=== PATIENT | female | born 1940 | race Caucasian/White ===

== ENCOUNTER → 2017-06-30 | Outpatient (CLI) | payer MEDICARE, OTHER | LOC: M ADAMS 13:23 | DX: S66.002A Unspecified injury of long flexor muscle, fascia and tendon of left thumb at wrist and hand level, initial encounter (principal); X58.XXXA Exposure to other specified factors, initial encounter; Y92.89 Other specified places as the place of occurrence of the external cause | CPT/HCPCS: 73140 ==

== ENCOUNTER → 2017-09-03 | Outpatient (REF) | payer MEDICARE, OTHER ==
[2017-09-03 14:20] LABS: VITAMIN B12 LEVEL 474 PG/ML (247-911)
== END ==
LOC: M LAB REF 13:12
DX: R20.8 Other disturbances of skin sensation (principal); L65.9 Nonscarring hair loss, unspecified
CPT/HCPCS: 82607

== ENCOUNTER → 2018-05-27 | Outpatient (REF) | payer MEDICARE, OTHER ==
[2018-05-27 14:21] LABS: CONTROL LINE HPYORI INT CTR LINE PRESENT; H PYLORI QUALITATIVE IgG NEGATIVE (NEGATIVE)
[2018-05-27 15:39] LABS: AMYLASE 101 U/L (25-115)
[2018-05-27 15:54] LABS: LIPASE 203 U/L (73-393)
== END ==
LOC: M LAB REF 13:25
DX: R10.13 Epigastric pain (principal)
CPT/HCPCS: 82150

== ENCOUNTER → 2018-06-10 | Outpatient (CLI) | payer MEDICARE, OTHER ==
[~2018-06-10] MED LIST: E-Z-GAS II EFFERVESCENT PACKET (SODIUM BICARB./CITRIC ACID/SIMETHICONE) As Ordered; E-Z-HD 98% w/w 340GM SUSP BTL As Ordered; E-Z-PAQUE 96% w/w SUSP 176GM BTL As Ordered
== END ==
LOC: M RAD 10:01
DX: K44.9 Diaphragmatic hernia without obstruction or gangrene (principal); R10.13 Epigastric pain
CPT/HCPCS: 74241

== ENCOUNTER → 2018-11-23 | Outpatient (REF) | payer MEDICARE, OTHER ==
[2018-11-24 08:06] LABS: LDL DIRECT 123 mg/dL (0-99)
== END ==
LOC: M LAB REF 12:27
PROVIDERS: ATTEND Nurse Practitioner Adult Health
DX: E78.00 Pure hypercholesterolemia, unspecified (principal)

== ENCOUNTER → 2020-01-01 | Outpatient (REF) | payer MEDICARE, OTHER ==
[2020-01-01 17:54] LABS: CREATININE FOR GFR 1.04 MG/DL (0.55-1.30); GLOMERULAR FILTRATION RATE 54.7 (>39)
== END ==
LOC: M LABDRWAD 16:46
PROVIDERS: ATTEND Neurological Surgery
DX: D32.0 Benign neoplasm of cerebral meninges (principal)

== ENCOUNTER → 2021-01-03 | Outpatient (CLI) | payer MEDICARE, OTHER | LOC: M WHC 14:55 | PROVIDERS: ATTEND Nurse Practitioner Adult Health | DX: Z12.31 Encounter for screening mammogram for malignant neoplasm of breast (principal); Z78.0 Asymptomatic menopausal state; Z80.3 Family history of malignant neoplasm of breast ==

== ENCOUNTER → 2021-03-14 | Outpatient (CLI) | payer MEDICARE, OTHER ==
[~2021-03-14] MED LIST changes: -E-Z-GAS II EFFERVESCENT PACKET (SODIUM BICARB./CITRIC ACID/SIMETHICONE) As Ordered; -E-Z-HD 98% w/w 340GM SUSP BTL As Ordered; -E-Z-PAQUE 96% w/w SUSP 176GM BTL As Ordered; +PROHANCE 279.3MG/ML 15ML VIAL As Ordered ONE; +PROHANCE 279.3MG/ML 5ML VIAL As Ordered ONE
== END ==
LOC: M RAD 13:04
PROVIDERS: ATTEND Radiology Radiation Oncology
DX: D32.0 Benign neoplasm of cerebral meninges (principal)
CPT/HCPCS: 70553; A9576

== ENCOUNTER → 2021-09-29 | Outpatient (CLI) | payer MEDICARE, OTHER | LOC: M RAD 12:36 | PROVIDERS: ATTEND Radiology Radiation Oncology | DX: D32.0 Benign neoplasm of cerebral meninges (principal) | CPT/HCPCS: 70553; A9576 ==

== ENCOUNTER → 2021-11-26 | Outpatient (REF) | payer MEDICARE, OTHER ==
[2021-11-26 17:33] LABS: APPEARANCE, URINE HAZY (CLEAR); BACTERIA, URINE AUTO 1+ (NEGATIVE); BILIRUBIN, URINE AUTO NEGATIVE (NEGATIVE); BLOOD, URINE BLOOD 2+ (NEGATIVE); COLOR, URINE YELLOW (YELLOW); GLUCOSE, URINE (UA) AUTO NEGATIVE (NEGATIVE); KETONE, URINE AUTO NEGATIVE (NEGATIVE); LEUKOCYTE ESTERASE, URINE AUTO 3+ (NEGATIVE); NITRITE, URINE AUTO NEGATIVE (NEGATIVE); PROTEIN, URINE AUTO NEGATIVE (NEGATIVE); RBC, URINE AUTO 3 /HPF (0-3); SPECIFIC GRAVITY URINE AUTO 1.008 (1.002-1.035); SQUAMOUS EPITHELIAL CELL UR AU 3 /HPF (0-6); UROBILINOGEN, URINE AUTO 0.2 mg/dL (0.0-2.0); WBC, URINE AUTO 143 /HPF (0-3)
== END ==
LOC: M LAB REF 16:43
PROVIDERS: ATTEND Physician Assistant
DX: N39.0 Urinary tract infection, site not specified (principal)

== ENCOUNTER → 2022-04-16 | Outpatient (CLI) | payer MEDICARE, OTHER | LOC: M RAD 12:34 | PROVIDERS: ATTEND Radiology Radiation Oncology | DX: D32.0 Benign neoplasm of cerebral meninges (principal) ==

== ENCOUNTER → 2022-05-27 | Outpatient (CLI) | payer MEDICARE, OTHER | LOC: M WUC 12:54 | PROVIDERS: ATTEND Nurse Practitioner Adult Health | DX: R07.89 Other chest pain (principal) ==

== ENCOUNTER → 2022-12-31 | Outpatient (CLI) | payer MEDICARE, OTHER | LOC: M RAD 15:12 | PROVIDERS: ATTEND Nurse Practitioner Adult Health | DX: D32.0 Benign neoplasm of cerebral meninges (principal) ==

== ENCOUNTER → 2023-03-08 | Outpatient (REF) | payer MEDICARE, OTHER | LOC: M LAB REF 16:30 | PROVIDERS: ATTEND Internal Medicine | DX: N39.0 Urinary tract infection, site not specified (principal) ==

== ENCOUNTER → 2023-03-12 | Outpatient (CLI) | payer MEDICARE, OTHER | LOC: M CARPUL 11:10 | PROVIDERS: ATTEND Nurse Practitioner Adult Health | DX: R00.2 Palpitations (principal); R07.9 Chest pain, unspecified; R06.02 Shortness of breath ==

== ENCOUNTER → 2023-10-07 | Outpatient (CLI) | payer MEDICARE, OTHER | LOC: M WUC 14:10 | PROVIDERS: ATTEND Nurse Practitioner Adult Health | DX: M54.50 Low back pain, unspecified (principal) ==

== ENCOUNTER → 2023-12-10 | Outpatient (CLI) | payer MEDICARE, OTHER | LOC: M PLAIMG 10:43 | PROVIDERS: ATTEND Nurse Practitioner Adult Health | DX: D32.0 Benign neoplasm of cerebral meninges (principal) ==

== ENCOUNTER → 2024-01-21 | Outpatient (CLI) | payer MEDICARE, OTHER ==
[~2024-01-21] MED LIST changes: +LEVO25TA5 PO; -PROHANCE 279.3MG/ML 15ML VIAL As Ordered ONE; -PROHANCE 279.3MG/ML 5ML VIAL As Ordered ONE
== END ==
LOC: M ONCR 14:05
PROVIDERS: ATTEND General Practice
DX: C44.311 Basal cell carcinoma of skin of nose (principal); C44.319 Basal cell carcinoma of skin of other parts of face; Z80.3 Family history of malignant neoplasm of breast; Z80.42 Family history of malignant neoplasm of prostate; Z79.899 Other long term (current) drug therapy

== ENCOUNTER 2024-02-16 10:10 | Outpatient (RCR) | payer MEDICARE, OTHER | END 2024-02-26 | LOC: M ONCR 10:10 | PROVIDERS: ATTEND General Practice | DX: Z51.0 Encounter for antineoplastic radiation therapy (principal); C44.311 Basal cell carcinoma of skin of nose ==

== ENCOUNTER 2024-03-24 12:50 | Outpatient (RCR) | payer MEDICARE, OTHER | END 2024-03-27 | LOC: M ONCR 12:50 | PROVIDERS: ATTEND General Practice | DX: Z51.0 Encounter for antineoplastic radiation therapy (principal); C44.311 Basal cell carcinoma of skin of nose ==

== ENCOUNTER → 2024-04-24 | Outpatient (REF) | payer MEDICARE, OTHER ==
[2024-04-24 20:06] LABS: FERRITIN 106.3 NG/ML (7.3-270.7)
[2024-04-24 20:08] LABS: FREE T3 2.5 PG/ML (2.3-4.2)
== END ==
LOC: M LAB REF 16:43
PROVIDERS: ATTEND Nurse Practitioner Adult Health
DX: E03.9 Hypothyroidism, unspecified (principal); E55.9 Vitamin D deficiency, unspecified; I10 Essential (primary) hypertension

== ENCOUNTER → 2024-04-27 | Outpatient (RCR) | payer MEDICARE, OTHER | LOC: M ONCR 03-28 14:36 | PROVIDERS: ATTEND General Practice | DX: Z51.0 Encounter for antineoplastic radiation therapy (principal); C44.311 Basal cell carcinoma of skin of nose ==

== ENCOUNTER 2024-05-01 14:33 | Outpatient (RCR) | payer MEDICARE, OTHER | END 2024-05-27 | LOC: M ONCR 14:33 | PROVIDERS: ATTEND General Practice | DX: Z51.0 Encounter for antineoplastic radiation therapy (principal); C44.311 Basal cell carcinoma of skin of nose ==

== ENCOUNTER → 2024-05-31 | Outpatient (CLI) | payer MEDICARE, OTHER | LOC: M ONCR 15:19 | PROVIDERS: ATTEND General Practice | DX: C44.311 Basal cell carcinoma of skin of nose (principal); C44.319 Basal cell carcinoma of skin of other parts of face; Z92.3 Personal history of irradiation ==

== ENCOUNTER 2024-07-15 21:42 | Observation (INO) | payer MEDICARE, OTHER ==
[~2024-07-15] VITALS: Ht 165.1 cm; Wt 90.3 kg
[2024-07-15] MEDS: fentaNYL 100 MCG/2 ML INJECTION IV ONE ×2 (22:08→22:35)
[2024-07-15 23:40] LABS: BASO % 0.4 % (0.0-1.0); EOS # 0.1 10^3/uL (0.0-0.5); EOS % 0.8 % (0.0-3.0); HEMATOCRIT 40.7 % (36.0-47.0); HEMOGLOBIN 13.7 g/dl (12.0-15.5); LYMPH # 1.3 10^3/uL (1.5-5.0); LYMPH % 15.7 % (24.0-44.0); MEAN CORPUSCULAR HEMOGLOBIN 31.5 pg (27.0-33.0); MEAN CORPUSCULAR HGB CONC 33.7 g/dl (32.0-36.5); MEAN CORPUSCULAR VOLUME 93.6 fl (80.0-96.0); MONO # 0.6 10^3/uL (0.0-0.8); MONO % 6.7 % (2.0-8.0); NEUTROPHILS # 6.5 10^3/uL (1.5-8.5); NEUTROPHILS % 76.2 % (36.0-66.0); PLATELET COUNT, AUTOMATED 165 10^3/uL (150-450); RED BLOOD COUNT 4.35 10^6/uL (4.00-5.40); WHITE BLOOD COUNT 8.5 10^3/uL (4.0-10.0)
[2024-07-15 23:52] LABS: INR 0.97; PARTIAL THROMBOPLASTIN TIME 30.8 SECONDS (24.8-34.2); PROTHROMBIN TIME 13.2 SECONDS (12.5-14.5)
[2024-07-16 00:01] LABS: BLOOD UREA NITROGEN 19 MG/DL (9-23); CALCIUM LEVEL 9.1 MG/DL (8.3-10.6); CARBON DIOXIDE LEVEL 24 MMOL/L (20-31); CHLORIDE LEVEL 108 MMOL/L (98-107); CREATININE FOR GFR 0.88 MG/DL (0.55-1.30); GLOMERULAR FILTRATION RATE > 60.0 (>32); GLUCOSE, FASTING 119 MG/DL (74-106); POTASSIUM SERUM 4.1 MMOL/L (3.5-5.1); SODIUM LEVEL 141 MMOL/L (136-145)
[2024-07-16] MEDS ORDERED: ERGO500029 PO (00:37)
[2024-07-16] MEDS ORDERED: CHOL1CAP PO (00:37)
[2024-07-16] MEDS ORDERED: LEVO75TA34 PO (00:37)
[2024-07-16] MEDS ORDERED: HOME MED LIST COMPLETE! XX SCH (00:40)
[2024-07-16] MEDS ORDERED: ACETAMINOPHEN 500 MG TAB PO PRN ×2 (01:15)
[2024-07-16 02:30] VITALS: BP 129/88; TEMP 97.3; O2SAT 98
[2024-07-16] MEDS: MORPHINE 2 MG/ML 1ML VIAL IV PRN ×2 (03:36→14:00)
[2024-07-16 04:11] VITALS: BP 147/74; TEMP 97.5; O2SAT 96
[2024-07-16] MEDS ORDERED: MORPHINE 2 MG/ML 1ML VIAL IV PRN ×3 (04:20→09:30)
[2024-07-16] MEDS ORDERED: NALOXONE INJ 0.4MG/1ML VIAL IV PRN (04:20)
[2024-07-16] MEDS: MORPHINE 4 MG/ML 1ML VIAL IV PRN (04:44)
[2024-07-16] MEDS: ACETAMINOPHEN *IV* 1,000 MG in IV 1 EA IV ONE (04:45)
[2024-07-16] MEDS: METHOCARBAMOL 1,000 MG/10 ML VIAL IV ONE (04:45)
[2024-07-16] MEDS ORDERED: HEPARIN SOD (PORCINE) 5000UNITS/ML 1ML VIAL/SYRINGE SC SCH (06:00)
[2024-07-16 06:43] LABS: HEMATOCRIT 39.4 % (36.0-47.0); HEMOGLOBIN 13.1 g/dl (12.0-15.5); MEAN CORPUSCULAR HEMOGLOBIN 31.3 pg (27.0-33.0); MEAN CORPUSCULAR HGB CONC 33.2 g/dl (32.0-36.5); PLATELET COUNT, AUTOMATED 172 10^3/uL (150-450); RED BLOOD COUNT 4.19 10^6/uL (4.00-5.40); WHITE BLOOD COUNT 7.2 10^3/uL (4.0-10.0)
[2024-07-16 07:09] LABS: ALBUMIN 3.3 G/DL (3.2-5.2); ALKALINE PHOSPHATASE 78 U/L (35-104); ALT/SGPT 21 U/L (7.0-40); AST/SGOT 27 U/L (<34); BILIRUBIN,TOTAL 0.5 MG/DL (0.3-1.2); BLOOD UREA NITROGEN 18 MG/DL (9-23); CALCIUM LEVEL 8.8 MG/DL (8.3-10.6); CARBON DIOXIDE LEVEL 25 MMOL/L (20-31); CHLORIDE LEVEL 108 MMOL/L (98-107); CREATININE FOR GFR 0.87 MG/DL (0.55-1.30); GLOMERULAR FILTRATION RATE > 60.0 (>32); GLUCOSE, FASTING 106 MG/DL (74-106); MAGNESIUM LEVEL 2.1 MG/DL (1.8-2.4); POTASSIUM SERUM 4.2 MMOL/L (3.5-5.1); SODIUM LEVEL 141 MMOL/L (136-145); TOTAL PROTEIN 6.6 G/DL (5.7-8.2)
[2024-07-16] MEDS ORDERED: ONDANSETRON 4MG 2ML VIAL IV PRN (09:30)
[2024-07-16] MEDS ORDERED: fentaNYL 100 MCG/2 ML INJECTION IV PRN ×2 (09:30→13:45)
[2024-07-16] MEDS ORDERED: MIDAZOLAM INJ 2MG/2ML VIAL IV PRN (09:45)
[2024-07-16] MEDS: LEVOTHYROXINE 75MCG TABLET (0.075MG) PO SCH (09:58)
[2024-07-16] MEDS: DOCUSATE SODIUM 100MG CAPSULE PO SCH (09:58)
[2024-07-16] MEDS: dexAMETHasone 10MG/1ML VIAL PRES.FREE PN ONE (10:00)
[2024-07-16] MEDS ORDERED: LIDOCAINE 2% 100MG/5ML SDV (FOR ANES.) As Ordered ONE (11:33)
[2024-07-16] MEDS ORDERED: propofoL 200 MG/20 ML VIAL As Ordered ONE (11:33)
[2024-07-16] MEDS ORDERED: MIDAZOLAM INJ 2MG/2ML VIAL As Ordered ONE (11:34)
[2024-07-16] MEDS ORDERED: fentaNYL 100 MCG/2 ML INJECTION As Ordered ONE (11:34)
[2024-07-16] MEDS: fentaNYL 100 MCG/2 ML INJECTION IV PRN (11:36)
[2024-07-16] MEDS: ceFAZolin 2 GM/D5W 50 ML IV BAG As Ordered ONE (12:40)
[2024-07-16] MEDS ORDERED: ONDANSETRON 4MG 2ML VIAL As Ordered ONE (12:46)
[2024-07-16] MEDS ORDERED: ACETAMINOPHEN 1000MG/100ML IV BAG As Ordered ONE (12:46)
[2024-07-16] MEDS: oxyCODONE 5MG TAB PO PRN (14:00)
[2024-07-16 16:00] VITALS: BP 108/57; TEMP 97.9; O2SAT 95
[2024-07-16 17:00] VITALS: BP 127/61; TEMP 97.7; O2SAT 95
[2024-07-16] MEDS: PERCOCET 5MG/325MG TAB PO PRN (17:25)
[2024-07-16 18:00] VITALS: BP 128/61; TEMP 97.7; O2SAT 94
[2024-07-16 20:03] VITALS: BP 128/59; TEMP 97.9; O2SAT 92
[2024-07-16] MEDS: ceFAZolin SOD 2 GM in IV 1 EA IV SCH (20:22)
[2024-07-17] VITALS: BP 123/56; TEMP 97.7; O2SAT 94
[2024-07-17 04:00] VITALS: BP 137/69; TEMP 97.9; O2SAT 95
[2024-07-17 08:00] VITALS: BP 144/69; TEMP 98.6; O2SAT 95
[2024-07-17] MEDS: ENOXAPARIN 40MG/0.4ML SYRINGE (J1650 PER 10MG) SC SCH (09:00)
[2024-07-17 09:26] LABS: BASO % 0.1 % (0.0-1.0); EOS % 0.1 % (0.0-3.0); HEMATOCRIT 40.9 % (36.0-47.0); HEMOGLOBIN 13.1 g/dl (12.0-15.5); LYMPH # 0.6 10^3/uL (1.5-5.0); LYMPH % 5.8 % (24.0-44.0); MEAN CORPUSCULAR HEMOGLOBIN 30.6 pg (27.0-33.0); MEAN CORPUSCULAR VOLUME 95.6 fl (80.0-96.0); MONO # 0.6 10^3/uL (0.0-0.8); MONO % 5.7 % (2.0-8.0); NEUTROPHILS % 88.1 % (36.0-66.0); PLATELET COUNT, AUTOMATED 193 10^3/uL (150-450); RED BLOOD COUNT 4.28 10^6/uL (4.00-5.40); WHITE BLOOD COUNT 10.2 10^3/uL (4.0-10.0)
[2024-07-17 09:51] LABS: BLOOD UREA NITROGEN 18 MG/DL (9-23); CALCIUM LEVEL 9.2 MG/DL (8.3-10.6); CARBON DIOXIDE LEVEL 25 MMOL/L (20-31); CHLORIDE LEVEL 109 MMOL/L (98-107); CREATININE FOR GFR 0.85 MG/DL (0.55-1.30); GLOMERULAR FILTRATION RATE > 60.0 (>32); GLUCOSE, FASTING 121 MG/DL (74-106); POTASSIUM SERUM 4.5 MMOL/L (3.5-5.1); SODIUM LEVEL 142 MMOL/L (136-145)
[2024-07-17 12:00] VITALS: BP 126/53; TEMP 97.9; O2SAT 92
== END 2024-07-17 14:40 ==
LOC: EDBD 21:42 → M ED 21:42 → M ED INP 21:43 → M MS5PR 07-16 02:18
PROVIDERS: ADMIT Family Medicine; ATTEND Internal Medicine
DX: S82.852A Displaced trimalleolar fracture of left lower leg, initial encounter for closed fracture (principal); S93.432A Sprain of tibiofibular ligament of left ankle, initial encounter; W18.30XA Fall on same level, unspecified, initial encounter; Y92.007 Garden or yard of unspecified non-institutional (private) residence as the place of occurrence of the external cause; Y93.K1 Activity, walking an animal; Y99.8 Other external cause status; E03.9 Hypothyroidism, unspecified; I73.9 Peripheral vascular disease, unspecified; I10 Essential (primary) hypertension; D72.829 Elevated white blood cell count, unspecified; Z79.890 Hormone replacement therapy; Z88.0 Allergy status to penicillin; Z88.4 Allergy status to anesthetic agent

== ENCOUNTER 2024-07-17 11:48 | Inpatient (IN) | payer MEDICARE, OTHER ==
[~2024-07-17] VITALS: Ht 165.1 cm; Wt 92.3 kg
[~2024-07-17 11:48] MED LIST changes: +CHOL1CAP PO; +ERGO500029 PO; +LEVO75TA34 PO
[2024-07-17] MEDS ORDERED: MAALOX 30 ML SUSP *UDC PO PRN (13:55)
[2024-07-17] MEDS ORDERED: MIRALAX *UNIT DOSE* 17GM PACKET PO PRN (13:55)
[2024-07-17] MEDS ORDERED: NALOXONE INJ 0.4MG/1ML VIAL IV PRN (13:55)
[2024-07-17] MEDS ORDERED: ONDANSETRON 4MG ORAL DISINTEGRATING TAB PO PRN (13:55)
[2024-07-17] MEDS ORDERED: oxyCODONE 5MG TAB PO PRN ×2 (13:55)
[2024-07-17] MEDS ORDERED: BISACODYL 10MG SUPP PR PRN (13:55)
[2024-07-17] MEDS ORDERED: SIMETHICONE 80MG CHEW TAB PO PRN (13:55)
[2024-07-17 14:40] VITALS: BP 131/60; TEMP 98.9; O2SAT 97
[2024-07-17] MEDS: VITAMIN D 50,000 UNITS CAPSULE (ERGOCALCIFEROL 1.25MG) PO SCH (16:45)
[2024-07-17] MEDS: ACETAMINOPHEN 500 MG TAB PO PRN (16:48)
[2024-07-17 19:55] VITALS: BP 141/67; TEMP 98.6; O2SAT 94
[2024-07-17] MEDS: SENNA 8.6 MG TAB (SENOKOT) PO SCH (20:03)
[2024-07-17] MEDS: DOCUSATE SODIUM 100MG CAPSULE PO SCH (20:03)
[2024-07-17] MEDS: ASPIRIN 81MG ENTERIC TABLET PO SCH (20:04)
[2024-07-18 04:30] VITALS: BP 148/71; TEMP 97.6; O2SAT 93
[2024-07-18] MEDS: LEVOTHYROXINE 75MCG TABLET (0.075MG) PO SCH (06:06)
[2024-07-18 10:17] LABS: BASO % 0.4 % (0.0-1.0); EOS # 0.1 10^3/uL (0.0-0.5); EOS % 1.6 % (0.0-3.0); HEMATOCRIT 39.2 % (36.0-47.0); HEMOGLOBIN 12.8 g/dl (12.0-15.5); LYMPH # 2.1 10^3/uL (1.5-5.0); LYMPH % 25.1 % (24.0-44.0); MEAN CORPUSCULAR HGB CONC 32.7 g/dl (32.0-36.5); MEAN CORPUSCULAR VOLUME 94.9 fl (80.0-96.0); MONO # 0.6 10^3/uL (0.0-0.8); MONO % 7.6 % (2.0-8.0); NEUTROPHILS # 5.4 10^3/uL (1.5-8.5); NEUTROPHILS % 65.1 % (36.0-66.0); PLATELET COUNT, AUTOMATED 197 10^3/uL (150-450); RED BLOOD COUNT 4.13 10^6/uL (4.00-5.40); WHITE BLOOD COUNT 8.3 10^3/uL (4.0-10.0)
[2024-07-18 10:35] LABS: ALBUMIN 3.4 G/DL (3.2-5.2); ALKALINE PHOSPHATASE 67 U/L (35-104); ALT/SGPT 10 U/L (7.0-40); AST/SGOT 30 U/L (<34); BILIRUBIN,TOTAL 0.4 MG/DL (0.3-1.2); BLOOD UREA NITROGEN 23 MG/DL (9-23); CALCIUM LEVEL 9.2 MG/DL (8.3-10.6); CARBON DIOXIDE LEVEL 27 MMOL/L (20-31); CHLORIDE LEVEL 108 MMOL/L (98-107); CREATININE FOR GFR 0.93 MG/DL (0.55-1.30); GLOMERULAR FILTRATION RATE > 60.0 (>32); GLUCOSE, FASTING 128 MG/DL (74-106); POTASSIUM SERUM 3.8 MMOL/L (3.5-5.1); SODIUM LEVEL 144 MMOL/L (136-145); TOTAL PROTEIN 6.8 G/DL (5.7-8.2)
[2024-07-18 12:00] VITALS: TEMP 97.4; O2SAT 98
[2024-07-18] MEDS: BISACODYL 5MG TAB PO PRN (12:20)
[2024-07-18] MEDS: BISACODYL 5MG TAB PO ONE (12:41)
[2024-07-18 20:00] VITALS: BP 121/59; TEMP 98; O2SAT 96
[2024-07-19 04:00] VITALS: BP 137/64; TEMP 97.5; O2SAT 96
[2024-07-19] MEDS: CALCIUM CARBONATE 500 MG CHEW U/D PO SCH (09:22)
[2024-07-19 12:20] VITALS: BP 109/58; TEMP 98.5; O2SAT 98
[2024-07-19 20:00] VITALS: BP 139/63; TEMP 97.8; O2SAT 98
[2024-07-20 05:33] VITALS: BP 136/65; TEMP 97; O2SAT 97
[2024-07-20 12:00] VITALS: BP_SYST 130; BP_SYST 131; BP_DIAS 61; BP_DIAS 68; TEMP 97.1; O2SAT 98
[2024-07-20 20:00] VITALS: BP 135/65; TEMP 98.4; O2SAT 95
[2024-07-21 04:00] VITALS: BP 140/65; TEMP 97.1; O2SAT 96
[2024-07-21 12:00] VITALS: TEMP 97.6; O2SAT 98
[2024-07-21 20:05] VITALS: BP 127/60; TEMP 96.8; O2SAT 18
[2024-07-22 04:34] VITALS: BP 143/66; TEMP 96.2; O2SAT 96
[2024-07-22 12:00] VITALS: BP 134/62; TEMP 98.2; O2SAT 96
[2024-07-22 19:57] VITALS: BP 118/58; TEMP 98; O2SAT 97
[2024-07-23 04:46] VITALS: BP 130/60; TEMP 97.2; O2SAT 95
[2024-07-23 12:00] VITALS: BP 125/61; TEMP 97.8; O2SAT 96
[2024-07-23 20:00] VITALS: BP 120/67; TEMP 97.1; O2SAT 97
[2024-07-24 04:54] VITALS: BP 138/63; TEMP 97.8; O2SAT 97
[2024-07-24 11:57] VITALS: BP 128/68; TEMP 98.3; O2SAT 97
[2024-07-24 12:00] VITALS: BP 137/62; TEMP 97.4; O2SAT 95
[2024-07-24] MEDS ORDERED: CALC200T15 PO (16:12)
[2024-07-24] MEDS ORDERED: ASPI81TAEC PO (16:12)
[2024-07-24] MEDS ORDERED: ACET-683 PO (16:12)
[2024-07-24 20:00] VITALS: BP 117/54; TEMP 98.6; O2SAT 96
[2024-07-25 04:00] VITALS: BP 130/65; TEMP 98.5; O2SAT 96
[2024-07-25 12:00] VITALS: BP 120/72; TEMP 98.6; O2SAT 96
== END 2024-07-25 14:20 | disposition home health service (06) | DRG 492 ==
LOC: M PM&R 14:40
PROVIDERS: ADMIT Physical Medicine & Rehabilitation; ATTEND Physical Medicine & Rehabilitation
PROC: 0QSK04Z Reposition Left Fibula with Internal Fixation Device, Open Approach (ICD-10-PCS; principal; 2024-07-16)
PROC: 0SSF04Z Reposition Right Ankle Joint with Internal Fixation Device, Open Approach (ICD-10-PCS; 2024-07-16)
DX: S82.852A Displaced trimalleolar fracture of left lower leg, initial encounter for closed fracture (principal); J96.01 Acute respiratory failure with hypoxia; S93.432A Sprain of tibiofibular ligament of left ankle, initial encounter; E03.9 Hypothyroidism, unspecified; I10 Essential (primary) hypertension; I73.9 Peripheral vascular disease, unspecified; D72.829 Elevated white blood cell count, unspecified; W18.30XA Fall on same level, unspecified, initial encounter; Y92.007 Garden or yard of unspecified non-institutional (private) residence as the place of occurrence of the external cause; Y93.K1 Activity, walking an animal; Z74.1 Need for assistance with personal care; Z74.09 Other reduced mobility; Z79.890 Hormone replacement therapy; Z79.899 Other long term (current) drug therapy; Z88.0 Allergy status to penicillin; Z88.8 Allergy status to other drugs, medicaments and biological substances; K59.00 Constipation, unspecified

== ENCOUNTER → 2024-08-02 | Outpatient (CLI) | payer MEDICARE, OTHER ==
[~2024-08-02] MED LIST changes: +ACET-683 PO; +ASPI81TAEC PO; +CALC200T15 PO
== END ==
LOC: M SOG 07:55
PROVIDERS: ATTEND Physician Assistant
DX: S82.852A Displaced trimalleolar fracture of left lower leg, initial encounter for closed fracture (principal)

== ENCOUNTER → 2024-08-30 | Outpatient (CLI) | payer MEDICARE, OTHER | LOC: M SOG 07:50 | PROVIDERS: ATTEND Physician Assistant | DX: S82.852A Displaced trimalleolar fracture of left lower leg, initial encounter for closed fracture (principal); W18.30XA Fall on same level, unspecified, initial encounter; Y92.009 Unspecified place in unspecified non-institutional (private) residence as the place of occurrence of the external cause ==

== ENCOUNTER → 2024-10-03 | Outpatient (CLI) | payer MEDICARE, OTHER | LOC: M SOG 07:50 | PROVIDERS: ATTEND Physician Assistant | DX: S82.852A Displaced trimalleolar fracture of left lower leg, initial encounter for closed fracture (principal); W18.30XA Fall on same level, unspecified, initial encounter; Y92.009 Unspecified place in unspecified non-institutional (private) residence as the place of occurrence of the external cause ==

== ENCOUNTER → 2024-10-31 | Outpatient (CLI) | payer MEDICARE, OTHER | LOC: M ONCR 14:27 | PROVIDERS: ATTEND General Practice | DX: Z08 Encounter for follow-up examination after completed treatment for malignant neoplasm (principal); Z85.828 Personal history of other malignant neoplasm of skin; Z92.3 Personal history of irradiation; Z88.0 Allergy status to penicillin; Z88.1 Allergy status to other antibiotic agents; Z88.8 Allergy status to other drugs, medicaments and biological substances; Z79.82 Long term (current) use of aspirin; Z79.899 Other long term (current) drug therapy; Z79.890 Hormone replacement therapy ==

== ENCOUNTER → 2025-01-10 | Outpatient (CLI) | payer MEDICARE, OTHER | LOC: M SOG 07:07 | PROVIDERS: ATTEND Physician Assistant | DX: S82.852A Displaced trimalleolar fracture of left lower leg, initial encounter for closed fracture (principal); Y93.9 Activity, unspecified; Y92.9 Unspecified place or not applicable ==

== ENCOUNTER → 2025-01-19 | Outpatient (CLI) | payer MEDICARE, OTHER ==
[2025-01-19 18:01] LABS: BASO # 0.0 10^3/uL (0.0-0.2); BASO % 0.7 % (0.0-1.0); EOS # 0.2 10^3/uL (0.0-0.5); EOS % 2.7 % (0.0-3.0); LYMPH # 1.7 10^3/uL (1.5-5.0); LYMPH % 28.6 % (24.0-44.0); MONO # 0.7 10^3/uL (0.0-0.8); MONO % 11.1 % (2.0-8.0); NEUTROPHILS # 3.4 10^3/uL (1.5-8.5); NEUTROPHILS % 56.6 % (36.0-66.0); PLATELET COUNT, AUTOMATED 231 10^3/uL (150-450)
[2025-01-19 18:54] LABS: ERYTHROCYTE SEDIMENTATION RATE 37 mm/hr (0-30)
== END ==
LOC: M WUC 14:22
PROVIDERS: ATTEND Orthopaedic Surgery
DX: S91.009A Unspecified open wound, unspecified ankle, initial encounter (principal); X58.XXXA Exposure to other specified factors, initial encounter; Y92.9 Unspecified place or not applicable; Y93.9 Activity, unspecified; Y99.9 Unspecified external cause status